=== PATIENT | female | born 1965 ===

== ENCOUNTER 2023-01-29 21:38 | Outpatient (REF) | payer BC, SELFPAY ==
[2023-01-29 22:08] LABS: Hemoglobin A1C 4.7 % (<5.7)
[2023-01-29 22:10] LABS: Calculated LDL 97 mg/dL (<100); Cholesterol 159 mg/dL (<200); HDL Cholesterol 50 mg/dL (40-60); Triglyceride 62 mg/dL (<150)
== END 2023-01-29 21:39 | disposition home or self-care (01) ==
LOC: NCHCN 21:38
PROVIDERS: Visit Provider Family Medicine
DX: Z00.00 Encounter for general adult medical examination without abnormal findings (principal)
CPT/HCPCS: 80061; 83036